=== PATIENT | female | born 1960 | race Caucasian/White ===

== ENCOUNTER 2018-08-17 09:50 | Inpatient (IN) | payer OTHER ==
[~2018-08-17] VITALS: Ht 149.9 cm; Wt 81.7 kg
[2018-08-17 10:00] VITALS: Ht 149.9 cm; Wt 81.7 kg
--- NOTE | 2018-08-17 10:09 | NUR ---
PT AWAKE AND ALERT. PT REPORTS HAVING HER BLOOD DRAWN 08/15/18 AND THE RESULTS SHOWED HER HGB WAS 5. PT DENIES ANY SYMPTOMS. PT DENIES HAVING ANY BLEEDING. NAD. RESP E/U. PT IN POSITION OF COMFORT AWAITING MSE.
--- NOTE | 2018-08-17 10:53 | NUR ---
MOVED TO BED 4. EKG IN PROG. PORTABLE XR COMPLETED
[2018-08-17 11:21] LABS: CALCIUM 8.3 mg/dL (8.5-10.1); CARBON DIOXIDE 30.3 mmol/L (21-32); CHLORIDE SERUM 101 mmol/L (98-107); CREATININE SERUM 0.7 mg/dL (0.6-1.0); GFR1 > 60 mL/min; GLUCOSE SERUM 181 mg/dL (74-106); POTASSIUM SERUM 3.4 mmol/L (3.5-5.1); SODIUM SERUM 137 mmol/L (136-145)
[2018-08-17 11:25] LABS: ALKALINE PHOSPHATASE 116 U/L (46-116); ALT/SGPT 26 U/L (14-59); AST/SGOT 66 U/L (15-37); BILIRUBIN TOTAL 5.2 mg/dL (0.20-1.00)
[2018-08-17 11:28] LABS: ALBUMIN 2.6 g/dL (3.4-5.0); TOTAL PROTEIN, SERUM 9.9 g/dL (6.4-8.2)
[2018-08-17 12:14] LABS: BASOPHIL % 0.5 % (0-2)
--- NOTE | 2018-08-17 12:27 | NUR ---
PER CAR ICER, PT'S CBC IS STILL PENDING, STS SHE WILL CALL BACK IN 2 MINS FOR CBC RESULTS.
[2018-08-17 12:51] LABS: RED CELL DISTRIBUTION WIDTH 19.9 % (11.5-14.5)
--- NOTE | 2018-08-17 13:10 | NUR ---
PER HERMELINDA FROM BLOOD BANK PTS SPECIMENT WILL BE SENT OUT; WILL CALL BACK "SOMETIME TODAY" WHEN READY.
--- NOTE | 2018-08-17 13:19 | NUR ---
REPORT GIVEN TO LUIS CAR
--- NOTE | 2018-08-17 13:34 | NUR ---
PT SEEN AMBULATING UP HALLWAY TO ROOM WITH STEADY GAIT. NO DISTRESS.
--- NOTE | 2018-08-17 13:44 | NUR ---
CONSENT FOR BLOOD TRANSFUSION SIGNED BY PT AND PLACED INSIDE CHART.
--- NOTE | 2018-08-17 13:51 | NUR ---
CHAPPERONED MD WITH RECTAL EXAM. PT TOLERATED WELL.
[2018-08-17 14:55] LABS: IRON 166 ug/dL (50-170); TOTAL IRON BINDING CAPACITY 207 ug/dL (250-450)
[2018-08-17 15:35] LABS: rbc morphology (normal/abnorm) ABNORMAL (NORMAL)
[2018-08-17 15:36] LABS: PLATELET COUNT 65 x10^3mcL (130-400)
--- NOTE | 2018-08-17 15:36 | NUR ---
[place], RESP E/U, NO DISTRESS.
--- NOTE | 2018-08-17 16:51 | NUR ---
RECEIVED REPORT FROM LUIS CAR IN ED. AWAITING PT ARRIVAL TO FLOOR.
[2018-08-17] MEDS ORDERED: LASIX20 MG PO (16:52)
--- NOTE | 2018-08-17 16:52 | NUR ---
REPORT GIVEN TO RN MONSE TO ASSUME CARE.
[2018-08-17 18:49] VITALS: BP 110/58
--- NOTE | 2018-08-17 19:20 | NUR ---
PT RECIEVED FROM THE DAY SHIFT RN, PT IS ALERT AND ORIENTED X4, PT IS CALM AND COOPERATIVE WITH CARE, DR FORMAN CALLED AND RECIEVED ORDERS FOR BLOOD TRANSFUSION, NO OTHER ORDERS GIVEN AT THIS TIME. SAFETY AND COMFORT MEASURES MAINTAINED, BED IN LOWEST POSITION, CALL LIGHT WITHIN REACH, WILL CONTINUE TO MONITOR AT THIS TIME.
--- NOTE | 2018-08-17 19:57 | NUR ---
REPORT GIVEN TO SUZIE CAR. ALL QUESTIONS AND CONCERNS ADDRESSED. ALL CARES ENDORSED.
[2018-08-17 21:06] VITALS: BP 101/53
--- NOTE | 2018-08-17 22:50 | NUR ---
PT IS AWAKE AND WATCHING TV AT THIS TIME. NO ACUTE DISTRESS NOTED, SAFETY AND COMFORT MEASURES MAINTAINED, BED IN LOWEST POSITION, CALL LIGHT WITHIN REACH, WILL CONTINUE TO MONITOR AT THIS TIME.
[2018-08-18] VITALS (11 sets, daily range): BP systolic 91–117; BP diastolic 41–65
--- NOTE | 2018-08-18 00:28 | NUR ---
PRE TRANSFUSION VITAL SIGNS ARE: TEMP 97.2, PULSE 89, BP 101/42 MAP 60, SPO2 95% ON 2L VIA NC, RESP RATE 18. NO REACTION NOTED.
--- NOTE | 2018-08-18 00:56 | NUR ---
PT 15 MINS VITAL SIGNS FOR BLOOD TRANSFUSION: TEMP 99.6, CA 89, BP 91/41 MAP 70, RESP RATE 18, SPO2 92% ON 2L VIA NC. PT DENIES CHILLS, FEVER, NAUSEA, VOMITING, NO DYSPNEA, NO HEAT AT INFUSION SITE, NO FACIAL FLUSHING, NO EDEMA AT THE SITE. SAFETY AND COMFORT MEASURES MAINTAINED, BED IN LOWEST POSITION, CALL LIGHT WITHIN REACH, WILL CONTINUE TO MONITOR AT THIS TIME.
--- NOTE | 2018-08-18 03:10 | NUR ---
PT IS RESTING IN BED WITH EYES CLOSED, NO ACUTE DISTRESS NOTED. BLOOD TRANSFUSION INFUSING WELL. NO ADVERSE REACTIONS NOTED, SAFETY AND COMFORT MEASURES MAINTAINED, BED IN LOWEST POSITION, CALL LIGHT WITHIN REACH.
--- NOTE | 2018-08-18 04:19 | NUR ---
PT IS RESTING IN BED WITH EYES CLOSED AT THIS TIME. NO ACUTE DISTRESS NOTED, NO FACIAL GRIMACING NOTED, NO ADVERSE REACTIONS NOTED, BLOOD TRANSFUSION STILL INFUSING AT THIS TIME. SAFETY AND COMFORT MEASURES MAINTAINED, BED IN LOWEST POSITION, CALL LIGHT WITHIN REACH, WILL CONTINUE TO MONITOR AT THIS TIME.
--- NOTE | 2018-08-18 05:22 | NUR ---
PT HAS RESTED IN INTERMITTENT INTERVALS THROUGHOUT THE SHIFT, PT HAS BEEN CALM AND COOPERATIVE WITH CARE, NO ACUTE DISTRESS NOTED, NO COMPLAINT OF PAIN AT THIS TIME. IV BLOOD TRANSFUSION 1 UNIT COMPLETED, NO ADVERSE REACTIONS NOTED, VITALS SIGNS WITHIN NORMAL LIMITS, PT DENIES FEVER, CHILLS, NAUSEA, VOMITING, HEADACHE, NO RASH NOTED, NO SOB NOTED, WILL ADMINISTER NEXT UNIT OF PRBC AFTER PATIENT VOIDS AFTER BEING GIVEN LASIX, SAFETY AND COMFORT MEASURES MAINTAINED, BED IN LOWEST POSITION, CALL LIGHT WITHIN REACH, WILL CONTINUE TO MONITOR AT THIS TIME.
[2018-08-18 05:44] LABS: BASOPHIL % 0.6 % (0-2)
[2018-08-18 05:54] LABS: CALCIUM 8.3 mg/dL (8.5-10.1); CARBON DIOXIDE 32.5 mmol/L (21-32); CHLORIDE SERUM 104 mmol/L (98-107); CREATININE SERUM 0.6 mg/dL (0.6-1.0); GFR1 > 60 mL/min; GLUCOSE SERUM 108 mg/dL (74-106); POTASSIUM SERUM 3.7 mmol/L (3.5-5.1); SODIUM SERUM 139 mmol/L (136-145)
--- NOTE | 2018-08-18 06:15 | NUR ---
PT PRE VITAL SIGNS FOLLOWS: BP 102/55, RESP 18, TEMP 97.3, SPO2 90. SAFETY AND COMFORT MEASURES MAINTAINED, BED IN LOWEST POSITION, CALL LIGHT WITHIN REACH, WILL CONTINUE TO MONITOR AT THIS TIME.
--- NOTE | 2018-08-18 06:45 | NUR ---
15 MIN VITALS BLOOD TRANSFUSION FOLLOWS: TEMP IS 98.1, SC 83, BP 103/55 RESP 18 SPO2 95%. NO ADVERSE REACTIONS NOTED. WILL CONTINUE TO MONITOR AT THIS TIME.
[2018-08-18 08:09] LABS: PLATELET COUNT 103 x10^3mcL (130-400); RED CELL DISTRIBUTION WIDTH 19.4 % (11.5-14.5)
[2018-08-18 12:01] LABS: IRON 190 ug/dL (50-170); TOTAL IRON BINDING CAPACITY 176 ug/dL (250-450)
[2018-08-18 13:18] LABS: BASOPHIL % 0.8 % (0-2)
[2018-08-18 13:22] LABS: PLATELET COUNT 75 x10^3mcL (130-400)
[2018-08-18 13:34] LABS: rbc morphology (normal/abnorm) ABNORMAL (NORMAL)
--- NOTE | 2018-08-18 13:44 | NUR ---
RECEIVED BEDSIDE REPORT FROM JOSEP CASAREZ; PT A/A/O X 4, CALM, COOPERATIVE. DENIES CHEST PAIN OR DISCOMFORT AT THIS TIME. NO ACUTE RESPIRATORY DISTRESS NOTED. SIDE RAILS UP X 2, BED IN LOW POSITION, CALL LIGHT WITHIN REACH. WILL CONTINUE TO MONITOR.
[2018-08-18 16:15] LABS: rbc morphology (normal/abnorm) ABNORMAL (NORMAL)
--- NOTE | 2018-08-18 17:20 | NUR ---
PT IN BED, WATCHING TV. PT A/A/O X 4, CALM, COOPERATIVE. DENIES CHEST PAIN OR DISCOMFORT AT THIS TIME. NO ACUTE RESPIRATORY DISTRESS NOTED. SIDE RAILS UP X 2, BED IN LOW POSITION, CALL LIGHT WITHIN REACH. WILL ENDORSE TO NOC SHIFT.
--- NOTE | 2018-08-18 19:10 | NUR ---
RECEIVED PT SITTING AT THE EDGE OF THE BED. AAOX4. LUNG SOUND CTA.NO SOB NOTED. DENIES ANY PAIN AT THIS TIME. IV SITE PATENT AND INTACT. BED IN LOWEST POSITION,CALL LIGHT WITHIN REACH.WILL CONTINUE TO MONITOR.
--- NOTE | 2018-08-19 05:08 | NUR ---
PT APPEARS TO BE SLEEPING. NO ACUTE REPSIRATORY DISTRESS NOTED. NO C/O PAIN AT THIS TIME. BED IN LOWEST POSITION,CALL LIGHT WITHIN REACH. WILL CONTINUE TO MONITOR.
[2018-08-19 05:21] VITALS: BP 111/69
--- NOTE | 2018-08-19 07:20 | NUR ---
CARE ENDORSED TO DAY NURSE
[2018-08-19 07:48] LABS: ALKALINE PHOSPHATASE 91 U/L (46-116); ALT/SGPT 23 U/L (14-59); AST/SGOT 58 U/L (15-37); BILIRUBIN TOTAL 4.27 mg/dL (0.20-1.00); CALCIUM 8.1 mg/dL (8.5-10.1); CARBON DIOXIDE 31.5 mmol/L (21-32); CHLORIDE SERUM 104 mmol/L (98-107); CREATININE SERUM 0.6 mg/dL (0.6-1.0); GFR1 > 60 mL/min; GLUCOSE SERUM 124 mg/dL (74-106); POTASSIUM SERUM 3.9 mmol/L (3.5-5.1); SODIUM SERUM 138 mmol/L (136-145)
[2018-08-19 07:49] LABS: ALBUMIN 2.3 g/dL (3.4-5.0); TOTAL PROTEIN, SERUM 8.3 g/dL (6.4-8.2)
--- NOTE | 2018-08-19 08:00 | NUR ---
SHIFT ASSESSMENT DONE. PATIENT A/A/OX4; GENERAL JAUDICE. DENIED PAIN. TELE#7; SR; HR = 93. DENIED CHEST PAIN. BREATHING SOUND DIMINISHED BISHOP BASES, BUT CLEAR. NO SOB. O2 SAT 95% ON 2L VIA N/C. ABD ROUND/SOFT. BOWEL SOUND ACTIVE. DENIED ABD PAIN. TOLERATED REGULAR DIET BREAKFAST. IVHL'D TO RFA. GENERAL WEAKNESS, BUT AMBULATORY. DENIED PAIN. CALL LIGHT IN REACH.
[2018-08-19 09:57] VITALS: BP 101/53
[2018-08-19] MEDS ORDERED: NATURE'S BLEND F1 MG PO (11:36)
[2018-08-19] MEDS ORDERED: FEROSUL325 MG PO (11:38)
[2018-08-19 12:27] VITALS: BP 101/53
[2018-08-19 12:29] LABS: BASOPHIL % 0.2 % (0-2)
[2018-08-19 12:33] LABS: PLATELET COUNT 58 x10^3mcL (130-400); RED CELL DISTRIBUTION WIDTH 20.7 % (11.5-14.5)
[2018-08-19 13:05] LABS: rbc morphology (normal/abnorm) ABNORMAL (NORMAL)
[2018-08-19 13:26] VITALS: BP 111/59
--- NOTE | 2018-08-19 14:45 | NUR ---
DR. DHILLON HAD SEEN PATIENT. ORDER OF DISCHARGE TO HOME TODAY. INSTRUCTION GIVEN. IV D/C'D. CONDITION STABLE. DENIED DIZZINESS AND PAIN. PATIENT WOULD TO SEE HER PCP ON MONDAY FOR HEMATOLOGY CONSULTATION.
== END 2018-08-19 14:47 | disposition home or self-care (01) | DRG 663 ==
LOC: ED 09:50 → DU 14:00
PROVIDERS: Emergency Medicine; Internal Medicine Pulmonary Disease; ADMIT Internal Medicine
PROC: 30233N1 Transfusion of Nonautologous Red Blood Cells into Peripheral Vein, Percutaneous Approach (ICD-10-PCS; principal; 2018-08-18)
DX: D64.9 Anemia, unspecified (principal); R16.1 Splenomegaly, not elsewhere classified
CPT/HCPCS: J1940; J7030; J7040; P9016; Q0092; Q0163

== ENCOUNTER 2018-10-11 10:46 | Inpatient (IN) | payer OTHER ==
[~2018-10-11] VITALS: Ht 149.9 cm; Wt 78.0 kg
[~2018-10-11 10:46] MED LIST: FEROSUL325 MG PO; LASIX20 MG PO; NATURE'S BLEND F1 MG PO
[2018-10-11 10:52] VITALS: Ht 149.9 cm; Wt 78.0 kg
--- NOTE | 2018-10-11 11:13 | NUR ---
PT BIB SON, STS SHE HAS HAD AN INCREASE IN "FEELING TIRED, BUT NOT WEAK" STS APPROX 2 DAYS AGO SHE HAD LABS DRAW WITH AT VISIT WITH PCP, STS HER PCP CALLED HER THIS AM AND TOLD HER TO COME TO THE ED FOR A HCG OF 5. PT DENIES SOB AND CP AT THIS TIME, STS SHE DOES FEEL SOB UPON WALKING AND LAYING DOWN FOR APPROX 1 YEAR, AND HAS ALSO HAD A "CRY COUGH" FOR APPROX 1 YEAR WELL, PER PT, "MY DR SAID I'M FINE, I JUST NEED TO GET THE BONE MARROW TEST". PT ALSO STS SHE IS CURRENTLY WAITING FOR "MY INSURANCE TO APPROVE A BONE MARROW TEST, TO FIND OUT WHY I'M ALWAYS ANEMIC". PT DRESSED APPROPRIATELY FOR WEATHER.
--- NOTE | 2018-10-11 11:13 | NUR ---
DR CROWE AT BEDSIDE FOR MSE.
--- NOTE | 2018-10-11 11:32 | NUR ---
LAB AT BEDSIDE.
[2018-10-11 11:59] LABS: CALCIUM 9.3 mg/dL (8.5-10.1); CARBON DIOXIDE 27.1 mmol/L (21-32); CHLORIDE SERUM 101 mmol/L (98-107); CREATININE SERUM 0.7 mg/dL (0.6-1.0); GFR1 > 60 mL/min; GLUCOSE SERUM 228 mg/dL (74-106); SODIUM SERUM 136 mmol/L (136-145)
[2018-10-11 12:05] LABS: BASOPHIL % 0.1 % (0-2)
[2018-10-11 12:07] LABS: ALKALINE PHOSPHATASE 133 U/L (46-116); ALT/SGPT 24 U/L (14-59); AST/SGOT 56 U/L (15-37); BILIRUBIN TOTAL 6.34 mg/dL (0.20-1.00)
[2018-10-11 12:11] LABS: ALBUMIN 2.3 g/dL (3.4-5.0); TOTAL PROTEIN, SERUM 9.8 g/dL (6.4-8.2)
--- NOTE | 2018-10-11 12:53 | NUR ---
SPOKE WITH LAB REGARDING PT'S CBC, STS "WE'RE WORKING ON IT".
[2018-10-11 12:58] LABS: RED CELL DISTRIBUTION WIDTH 18.3 % (11.5-14.5)
[2018-10-11 13:34] LABS: rbc morphology (normal/abnorm) ABNORMAL (NORMAL)
[2018-10-11] MEDS ORDERED: FERROUS SULFAT325 M2 PO (13:39)
[2018-10-11] MEDS ORDERED: NATURE'S BLEND F1 MG PO (13:39)
[2018-10-11] MEDS ORDERED: LASIX20 MG PO (13:39)
[2018-10-11 13:43] LABS: PLATELET COUNT 21 x10^3mcL (130-400)
--- NOTE | 2018-10-11 13:48 | NUR ---
PER LAB, PT IS HAS "POSITIVE ANTIBODIES SO WE HAVE WON'T HAVE THE BLOOD READY FOR ANOTHER 2 HRS", DR CROWE MADE AWARE, STS OK TO TRANSFER PT.
--- NOTE | 2018-10-11 13:49 | NUR ---
REPORT GIVEN TO JOSEP JACK TO ASSUME CARE OF PT.
[2018-10-11 13:58] LABS: IRON 169 ug/dL (50-170); TOTAL IRON BINDING CAPACITY 193 ug/dL (250-450)
--- NOTE | 2018-10-11 13:58 | NUR ---
RECEIVED PT VIA [facility] FROM E/D, ACCOMPANIED BY RN AND TRANSPORTER. PT A/A/O X 4, CALM, COOPERATIVE; PT W/ GLASSES BUT ONLY WEARS FOR READING, NOTED JAUNDICED SCLERA OU; DENIES KNOWLEDGE OF LIVER/GALL BLADDER PROBLEMS. BLE WEAKNESS BUT AMBULATORY, ABLE TO WALK FROM ERNEY TO BED USING WALKER, W/ SLOW, STEADY GAIT, BUT NEEDED HELP GETTING BOTH LEGS ONTO BED. DENIES CHEST PAIN OR DISCOMFORT AT THIS TIME. LUNGS CTAB, CHEST RISING EVENLY, 2LNC, 92%, C/O DRY COUGH X 1 YEAR (EXACERBATED BY PHYSICAL ACTIVITY). NOTED SCATTERED PETICHIAE/BRUISING TO BUE; SKIN OTHERWISE INTACT. IV SITE LAC 20G, CDI. ORIENTED PT TO ROOM, BED CONTROLS, CALL LIGHT SYSTEM. SIDE RAILS UP X 2, BED IN LOW POSITION. WILL ENDORSE TO JOSEP GIMENEZ.
[2018-10-11 14:43] VITALS: BP 107/56
--- NOTE | 2018-10-11 14:50 | NUR ---
RECEIVED PATIENT FROM KERON RN, PATIENT AWAKE/ALERT AND ORIENTED X4, DENIES PAIN. PATIENT EATING AT THIS TIME. POC EXPLAINED TO PATIENT, INFORM PATIENT STILL WAITING BLOOD TO BE READY. CALL LIGHT WITHIN REACH.
--- NOTE | 2018-10-11 15:29 | NUR ---
ASSISTING PATIENT TO BATHROOM AND BACK TO BED, MILD FATIGUE AND SOB NOTED. GAVE NEPHRO-JUVENAL PO AND REGULAR INSULIN 3 UNITS SQ FOR BS 190. PATIENT SIGN BLOOD CONSENT NO FURTHER QUESTION. CALL LIGHT WITHIN REACH.
--- NOTE | 2018-10-11 15:35 | NUR ---
CALLED AND SPOKE TO AND I VERIFIED WITH HIM THAT HE WANT A TOTAL OF 3 UNITS OF PRBC TO TRANSFUSE TO THIS PT. 2 MORE UNITS ORDERED PER 'S ORDER. CALLED TO BLOOD BANK AND SPOKE TO INA(STAFF FROM BLD BANK) AND MADE HER AWARE OF ORDER.
--- NOTE | 2018-10-11 16:59 | NUR ---
SPOKE TO PHARMACIST MARIA G PATIENT HAS NOT GET BLOOD TRANSFUSIN YET, WAITING FOR BLOOD TO BE AVAILABLE. NEED TO CHANGE DOSAGE TIME PER SPECIAL INSTRUCTION TO GIVE AFTER LAST BAG OF BLOOD TRANSFUSION.
[2018-10-11 17:26] VITALS: BP 98/55
--- NOTE | 2018-10-11 18:03 | NUR ---
PATIENT SAT UP IN BED NO COMPLAIN, VISITOR AT BEDSIDE. NO NEEDS ATTENDED AT THIS TIME. STILL WAITING FOR BLOOD BANK TO CALL. CONT TO MONITOR.
--- NOTE | 2018-10-11 19:46 | NUR ---
RECIEVED PT FROM DAY SHIFT RN. PT AAOX4 DENIES HEADACHE OR DIZZINESS. MED SURG PT DENIES CHEST PAIN. BREATHING EVEN AND UNLABORED WITH NO SOB NOTED, NC 2L/MIN. ABD SOFT AND ROUND, ACTIVE BOWEL SOUNDS, DENIES ABD PAIN N/V. BLE EDEMA NOTED. GENERALIZED WEAKNESS NOTED. IV LAC PATENT, SL. CALL BUTTON WITHIN REACH. SAFETY PRECAUTIONS IN PLACE.
[2018-10-11 20:57] VITALS: BP 95/43
--- NOTE | 2018-10-11 21:56 | NUR ---
CALCIUM GLUCONATE SCHEDULED FOR 2300 TONIGHT NOT ADMININSTERED BLOOD TRANSFUSION NOT YET AVAILABLE.
--- NOTE | 2018-10-11 23:36 | NUR ---
LANIE FROM LAB CALLED AND WANTED TO CALL DR FORMAN REGARDING BLOOD, DR FORMAN CALLED BACK AND TRANSFERRED CALL TO LANIE ([phone]). LANIE CALLED BACK AFTER PHONE CONVERSATION WITH DR FORMAN AND REQUESTED TO BRING BLOOD TRANSFUSION CONSENT SO HE COULD WRITE WHAT DR FORMAN ORDERED. RELAY MESSAGE TO ASSIGNED NURSE AIDAN.
[2018-10-12] VITALS (7 sets, daily range): BP systolic 37–110; BP diastolic 50–59
--- NOTE | 2018-10-12 00:11 | NUR ---
PT RESTING, BREATHING EVEN AND UNLABORED ON NC WITH NO SOB NOTED. NO SIGNS OF ACUTE DISTRESS NOTED. CALL BUTTON WITHIN REACH. SAFETY PRECAUTIONS IN PLACE. WILL CONTINUE TO MONITOR.
--- NOTE | 2018-10-12 00:24 | NUR ---
CALLED DR FORMAN AND ASKED IF HE WANTS TO PRE MEDICATE PATEINT PRIOR TO BLOOD TRANSFUSION, PER DR FORMAN NO NEED, NO NEW ORDER GIVEN.
--- NOTE | 2018-10-12 03:52 | NUR ---
0300 PATIENT DENIES ANY DISTRESS, VS TEMP 99.4, HR 95, BP 97/53, 18, 95% NC 2L/MIN FIRST UNIT OF BLOOD STARTED AT THIS TIME. PT MADE AWARE OF ADVERSE REACTION AND VERBALIZE UNDERSTANDING. 0315 VS TEMP 98.8, HR 89, BP 91/50, 18, 94% NC 2L/MIN NO SIGNS OF ADVERSE REACTION, NO SIGNS OF DISTRESS NOTED. CALL BUTTON WITHIN REACH. WILL CONTINUE TO MONITOR.
--- NOTE | 2018-10-12 05:43 | NUR ---
FIRST UNIT OF BLOOD TRANSFUSION COMPLETED AT THIS TIME. NO ADVERSE REACTION NOTED. TEMP 99.2, HR 87, BP 98/52, 18, 94% NC 2L/MIN. NO SIGNS OF DISTRESS. CALL BUTTON WITHIN REACH. WILL CONTINUE TO MONITOR.
--- NOTE | 2018-10-12 06:30 | NUR ---
SECOND BLOOD TRANSFUSION STARTED AT THIS TIME, VS STABLE. NO SIGNS OF ADVERSE REACTION NOTED. CALL BUTTON WITHIN REACH. WILL CONTINUE TO MONITOR.
--- NOTE | 2018-10-12 07:35 | NUR ---
PT SLEPT ON AND OFF THROUGH OUT THE NIGHT WITH NO SIGNS OF DISTRESS NOTED. IV PATENT BLOOD TRANSFUSION CONTINUED TO BE INFUSUED WITH NO ADVERSE REACTION NOTED. CALL BUTTON WITHIN REACH. SAFETY PRECAUTIONS IN PLACE. ENDORSED CARE TO DAY SHIFT RN, ALL QUESTIONS ADDRESSED.
--- NOTE | 2018-10-12 07:45 | NUR ---
RECEIVED CALL FROM RADIOLOGY AND ASKED FOR PATIEN TTO BE NPO AND PATIETN IS TO HAVE PTT AND PT AND CHEST XRAY INDICATED.
--- NOTE | 2018-10-12 08:00 | NUR ---
RECEIVED WITH BLOOD INFUSION RUNNING. PATIENT HAD BEEN NOTED TO HAVE H AND H OF JUST4.7/15. SHE RECEIVED BLOOD LAST NIGHT AND HAD BEEN WITH IT RUNNING AT 125CC PER HOUR. NO ADVERSE REQACTION NOTED AND PATIENT AHS BEEN OOB AND TOLERATED WELL. SHE HAS A WALKER AT [facility] AND HAS BEEN USING AT HOME WELL. SHE HAS FLUID RETENTION TO THE LOWER EXTREMTIIES AND HAS BEEN WITH MORE TO THE LEFT THAN THE RIGHT. SHE STATES SHE TAKES A WATER PILL AT HOME. PATIENT ZABRINA TINOCO AND ZABRINA SSOB AT THIS TIME. SHE HAS A HISTORY OF C SECTION. AND YUE DANIELS KNOWN ALLERGIES. PATIENT HAS HX OF ANEMIA AND PREVIOUS BLOOD TRANSFUSION. PATIENT AHS ECCHYMOSIS TO THE UPPER EXTREMITES BUT NO INJURY PER THE PATIENT. PATIETN IS IN NO ACUTE DISTRESS AT THIS TIME. ABDOMEN IS DISTENDED BUT SOFT.
--- NOTE | 2018-10-12 08:00 | NUR ---
PATIENT MADE NPO AT THIS TIME FOR POSSIBLE NEPHROSTOMY TUBE BILATERAL PLACEMENT TODAY. PATIENT IS WITH DIMINISHED BREATH SOUNDS AND BOWEL SOUNDS ACTIVE. SANDERS TO GRAVITY AND URINE IS CLOUDY AND MILKY IN APPEARANCE. IV INTACT AND PATIENT IS WITH HISTORY OF DEMENTIA AND HAS BEEN ORIENTED ONLY TO SELF AT THIS TIME. PULSES ARE MODERATE AND THE HANDS APPEAR CONTRACTED. STARTED WITH CHECKLIST AND WILL CALL THE FAMILY IF INDEED THE PROCEDURE IS GOING TO HAPPEN. THE RADIOLOGIST WANTED TO SPEAK WITH THE CHEMICAL PROCESS ENGINEER FIRST. PATIENT IS UNABLE TO SIGN HER CONSENTS. PATIENT HAS BEEN ON BEDREST AND FORM A FPC PER REPORT AND WAS WITH GENERAL WEAKNESS AND HAS BEEN PLACED ON AN AIR MATTRESS. SHE HAS A SACRAL WOUND WIT OPTIFORM IN PLACE AND Z GUARD APPLED TO THE RIGHT BUTTOCK DUE TO REDNESS. PATIENT HAS BEEN ON ROCEPHIN AND HAD RECEIVED ZITRHOMAX PRIOR. HX OF HTN, DM AND THE BLOOD SUGAR THIS AM AT 145. NOTED THE BUN WAS VERY ELEVATED PER RESIDENTIAL THERAPIST AT 150 AND THE CREATININE AT 8.1. PATIENT HAS BEEN ON SODIUM BICARB ORDERED AT 100CC PER HOUR. PATIENT IS PALE BUT DOES NOT INDICATE SHE HAS ANY PAIN AND DOES NOT APPEAR IN ACUTE RESPIRATORY DISTRESS. PATIENT CHEST XRAY SHOWS POSSIBLE ATELECTASIS OR PNEUMONIA TO THE LEFT LUNG. WILL CONTINUE TO MONITOR AND WILL KEEP NPO FOR FUTHER ORDERS AT THIS TIME.
--- NOTE | 2018-10-12 10:27 | NUR ---
SECOND UNIT COMPLETED THE LAB WAN FOR BLOOD AND PENDING RESULTS TO SEE IF THE THIRD UNIT IS INDICATED. PATIENT HAD NO ADVERSE REACTION.
[2018-10-12 10:33] LABS: ALKALINE PHOSPHATASE 126 U/L (46-116); ALT/SGPT 22 U/L (14-59); AST/SGOT 57 U/L (15-37); BILIRUBIN TOTAL 5.67 mg/dL (0.20-1.00); CALCIUM 8.4 mg/dL (8.5-10.1); CARBON DIOXIDE 29.5 mmol/L (21-32); CHLORIDE SERUM 102 mmol/L (98-107); CREATININE SERUM 0.7 mg/dL (0.6-1.0); GFR1 > 60 mL/min; GLUCOSE SERUM 205 mg/dL (74-106); MAGNESIUM 2.1 mg/dL (1.8-2.4); PHOSPHOROUS 4.1 mg/dL (2.5-4.9); POTASSIUM SERUM 4.4 mmol/L (3.5-5.1); SODIUM SERUM 136 mmol/L (136-145)
[2018-10-12 10:38] LABS: ALBUMIN 2.1 g/dL (3.4-5.0); TOTAL PROTEIN, SERUM 8.9 g/dL (6.4-8.2)
--- NOTE | 2018-10-12 11:55 | NUR ---
BLOOD SUGAR AT THIS TIME AT 179 AND COVERAGE IS INDICATED. PATIENT CONTINUE DON LAST UNIT OF BLOOD ORDERED.
--- NOTE | 2018-10-12 12:46 | NUR ---
GAVE THREE UNITS OF INSULIN FOR COVERAGE AND PATIENT CONTINUE DON BLOOD INFUSION ORDERED. NO SWELLING AND DENIES ANY ADVERSE REACTION AT THIS TIME.
--- NOTE | 2018-10-12 19:05 | NUR ---
REPORT RECEIVED FROM DAY SHIFT RN. PATIENT WAS SEEN AND IS RESTING COMFORTABLY IN BED WITH FAMILY AT BEDSIDE. NO DISTRESS NOTED. BREATHING EVEN ON 2L NC. NO SOB NOTED. DRY COUGH NOTED. DENIES CHEST PAIN/PRESSURE. IV TO THE RFA, S.L. PATENT AND INTACT. NO REDNESS OR SWELLING NOTED. NO C/O PAIN. PATIENT HAD 3U OF PRBCS TRANSFUSED. AWAITING ON H/H RESULTS. PATIENT VERBALIZED THAT SHE FEELS MORE COMFROTBALE STAYING ANOTHER NIGHT. COMFORT AND SAFETY MEASURES MAINTAINED. BED IS LOCKED AND IN THE LOWEST POSITION. SIDE RAILS UP X2. CALL LIGHT IS WITHIN REACH. WILL CONTINUE TO MONITOR.
--- NOTE | 2018-10-13 02:09 | NUR ---
PATIENT RESTING COMFORTABLY IN BED WITH EYES CLOSED. DAUGHTER AT BEDSIDE. NO SOB OR RESP DISTRESS NOTED. BREATHING EVEN ON ROOM AIR. NO S/S OF PAIN NOTED. IV TO THE LFA INFUSING WELL. COMFORT AND SAFETY MEASURES MAINTAINED. CALL LIGHT IS WITHIN REACH. WILL CONTINUE TO MONITOR.
--- NOTE | 2018-10-13 02:12 | NUR ---
PATIENT IS RESTING IN BED COMFORTABLY WITH EYES CLOSED. NO DISTRESS NOTED. BREATHING EVEN ON ROOM AIR. IV TO THE RFA, S.L. NO S/S OF PAIN NOTED. COMFORT AND SAFETY MEASURES MAINTAINED. CALL LIGHT IS WITHIN REACH. WILL CONTINUE TO MONITOR.
[2018-10-13 05:53] VITALS: BP 99/47
--- NOTE | 2018-10-13 06:23 | NUR ---
PATIENT SLEPT THROUHGOUT THE NIGHT. NO ACUTE CHANGES NOTED. NO DISTRESS NOTED. BREATHING EVEN ON 2L NC. NO C/O PAIN. IV TO THE RFA, SL. PATENT AND INTACT. NO REDNESS OR SWELLING NOTED. DENIES CHEST PAIN. STILL AWAITING LABS. CALL LIGHT IS WITHIN REACH. COMFORT AND SAFETY MEASURES MAINTAINED. WILL ENDORSE CARE TO DAY SHIFT RN.
--- NOTE | 2018-10-13 08:00 | NUR ---
RECEIVED PATIENT WHO HAD A GOOD NIGHT AND SLEPT WELL. DID NOT EAT MUCH THIS AM BUT HER OVERALL APPEARANCE IS IMPROVED SINCE LAST NIGHT. THE JAUNDICE THAT IS STILL PRESENT IS LESS TO THE WHITES OF THE EYE AND SKIN. SHE HAS MORE ENERGY TODAY AND DENIES ANY FELLING OF LIGHT HEADEDNESS. SHE HAS BEEN WAITING FOR THE LAB RETURN BUT NOT BACK YET. THE CHARGE INDICATED THE BLOOD NEEDED TO BE SENT OUT FOR TESTING. WILL CLARIFY MORE WITH THE LAB INDICATED. PATIENT THOUGH HAS BEEN ALL RIGHT TO STAY FOR NOW. ASSISTED OOB TO THE RESTROOM WITH STAFF OR HER WALKER AND STAFF. NOTED BLOOD SUGAR THIS AM AT 104. AHD NAD DENIED HAVING DIABETES. PATIENT HAS EDEMA TO THE LOWER EXTREMTIES BUT THE SWELLING REDUCED SINCE YESTERDAY AND THE LUNGS ARE MILDLY DININISHED BUT NOT HEARING CRACKLES LIKE LAST NIGHT AND NO DRY COUGH AT THIS TIME. VITALS AT THIS TIME AT 97.8, 89, 18, 99/97, 72, 96% ON 02 AT 2 LITERS VIA NASAL CANNULA.
--- NOTE | 2018-10-13 09:32 | NUR ---
WHEN NOTED THE LAB VALUE DID NOT COME BACK CALLED THE LAB AFTER WAS TOLD THERE WAS AN ISSUE WITH GETTING RESULTS BY THE NIGHT CHARGE NURSE. APPARENTLY THE SPECIMIN COULD NOT BE READ HERE AT [place] DUE TO A FACTOR IN THE BLOOD AND WAS SENT TO AN OUTSIDE LAB FOR READING AND PROCESSING. PER THE LAB STAFF THE SPECIMIN WENT OUT LAST NIGHT AND SHOULD BE BACK TODAY. ADVISED THE PATIETN WHO SEEM TO BE ALRIGHT WITH THIS. SHE IS ASYMPTOMATIC AT THIS TIME. WILL CONTINUE MONTIOR. PATIENT CONTINUED WITH SOME MILD OVERAL WEAKNESS BUT MUCH IMPROVED SINCE YESTERDAY.
[2018-10-13 09:33] VITALS: BP 103/52
--- NOTE | 2018-10-13 12:01 | NUR ---
BLOOD SUGAR AT 158 AND GAV E3 UNITS OF REGULAR. PATIETN IN IN NO ACUTE DISTRESS AT THIS TIME.
--- NOTE | 2018-10-13 14:40 | NUR ---
LAB CALLED TO F/U ON PENDING LABS FROM YESTERDAY. PER TECH RESULTS HAVE NOT BEEN RECEIVED FROM [facility] YET, LABS HAD TO BE SENT OUT. PER TECH THEY WILL CONTACT [facility] TO F/U AND CALL UP TO STATION TO LET ATTENDING NURSE KNOW WHEN TO EXPECT RESULTS.
--- NOTE | 2018-10-13 16:07 | NUR ---
BLOOD SUGAR AT THIS TIME AT 258 AND WILL GIVE COVERAGE INDICATED. FAMILY AT BEDSIDE AND PATIENT TO BE DRAWN AGAIN FOR CBC. PATIENT WAS TO HAVE HER LAB SENT TO AN OUTSIDE SOURCE BUT THE SPECIMEN WAS TAINTED PER LAB AND NEW DRAW INDICATED. CHARGE THE PRIMARY NURSE THE FOOD AND BEVERAGE DIRECTOR NURES AND CHARGE ALL CALLED ABOUT THIS LAB AND THE NEED FOR RESULTS THROUGHOUT YESTERDAY AND LAST NIGHT AND INTO TODAY. THE LAB IS HERE FOR REDRAW AT THIS TIME. WILL BE AWAITING RESULTS AT THIS TIME. PATENT HAS BEEN VISITING WITH FAMILY AND DENIES ANY ACUTE DISTRESS AT THIS TIME.
--- NOTE | 2018-10-13 16:11 | NUR ---
BLOOD SUGAR AT THIS TIME AT 235 AND WILL GIVE COVERAGE INDICATED. FAMILY AT BEDSIDE AND PATIENT TO BE DRAWN AGAIN FOR CBC. PATIENT WAS TO HAVE HER LAB SENT TO AN OUTSIDE SOURCE BUT THE SPECIMEN WAS TAINTED PER LAB AND NEW DRAW INDICATED. CHARGE THE PRIMARY NURSE THE DISEASE MANAGEMENT NURSE NURES AND CHARGE ALL CALLED ABOUT THIS LAB AND THE NEED FOR RESULTS THROUGHOUT YESTERDAY AND LAST NIGHT AND INTO TODAY. THE LAB IS HERE FOR REDRAW AT THIS TIME. WILL BE AWAITING RESULTS AT THIS TIME. PATENT HAS BEEN VISITING WITH FAMILY AND DENIES ANY ACUTE DISTRESS AT THIS TIME.
[2018-10-13 16:56] LABS: BASOPHIL % 0.6 % (0-2)
[2018-10-13 17:22] LABS: PLATELET COUNT 109 x10^3mcL (130-400); RED CELL DISTRIBUTION WIDTH 31.3 % (11.5-14.5)
[2018-10-13 17:31] VITALS: BP 100/50
[2018-10-13 17:57] LABS: rbc morphology (normal/abnorm) ABNORMAL (NORMAL)
--- NOTE | 2018-10-13 19:00 | NUR ---
RECEIVED PT IN BED COMFORTABLY RESTING WITH FAMILY AT BEDSIDE. BREATHING EVEN AND UNLABORED.DENIES ANY PAIN AND DISCOMFORT AT THIS TIME.IV SITE PATENT AND INTACT. BED IN LOWEST POSITION,CALL LIGHT WITHIN REACH. WILL CONTINUE TO MONITOR. WILL CONTINUE TO MONITOR.
--- NOTE | 2018-10-13 19:04 | NUR ---
PATIENT NEENA LASIX AND IRON ORDERED, NOTED THE H AHD H BACK AND THE HEMAGLOIN AT 7.7.
[2018-10-13 21:22] VITALS: BP 105/58
--- NOTE | 2018-10-14 05:01 | NUR ---
PT REMAINED ASLEEP.NO DISTRESS NOTED.NO S/S OF PAIN.BED IN LOWEST POSITION,CALL LIGHT WITHIN REACH. WILL CONTINUE TO MONITOR.
[2018-10-14 05:51] VITALS: BP 98/53
[2018-10-14 06:37] LABS: CALCIUM 8.7 mg/dL (8.5-10.1); CHLORIDE SERUM 103 mmol/L (98-107); CREATININE SERUM 0.6 mg/dL (0.6-1.0); GFR1 > 60 mL/min; GLUCOSE SERUM 132 mg/dL (74-106); MAGNESIUM 2.1 mg/dL (1.8-2.4); POTASSIUM SERUM 4.7 mmol/L (3.5-5.1); SODIUM SERUM 136 mmol/L (136-145)
--- NOTE | 2018-10-14 07:19 | NUR ---
CARE ENDORSED TO DAY NURSE ANGELA.
--- NOTE | 2018-10-14 08:00 | NUR ---
RECEIVED PATIENT ALERT AND ORIENTED TIMES FOUR. PATIENTAAHS BEEN OOB AND WITH WALKER AND STATES SHE IS LESS WEAK TODAY AND IS ANXIOUS TO GO HOME. NOTED THE LAB FOR H AND HF RETURN LAST NIGHT AT 7.7/. SHE HAS BEEN ON IRON, FOLIC ACID AND HAS BEEN WITH JAUNDICE BUT IS MUCH LESS THAN THE FIREST DAY STAFF HAD HER WITH THE YELLOWING OF THE EYES WELL. SHE HAS A DISTENDED BUT SOFT ABDOMEN AND HAS BEEN ABLE TO MOVE BOWELS WITHOUT PROBLEMS SHE HAS BEEN URINATING AND SHE HAS NOTED NEW ONSET OF DIABETES. THE LAST BLOOD SUGAR WAS AT 121 AND NO CO COVERAGE INDICATED. PATIENT HAS VITALS AT THIS TIME AT 98.0, 85, 18, 98/53, 95% ON ROOM AIR. PATIENT IS TO BE OFF 02 AND ASSIST WITH AMBULATION AND TRANSVERS TO AND FROM THE RESTOOM. SHE HAS NOTED LAB OF BUN AT 25.0, CREATININES AT 6.6, AND ALK PHOS AT 126. PATIENT HAS BEEN WITH LOW WBC AT 4.0 AND THE EDEMA TO THE LOWER EXTREMITES IS IMPROVED BUT STILL WTIH AT LEAST 2 PLUS BILATERALLY. CONTINUED ON LASIX ORDERED. NOTED THE PATIEN THAS SOME ECHEMOSIS TO THE UPPER EXTREMTIES SHE DENIES PAIN AT THIS TIME. WILL CONTINUE TO [facility].
[2018-10-14 09:02] VITALS: BP 100/46
--- NOTE | 2018-10-14 12:54 | NUR ---
BLOODS SUGAR AT 207 AND GAVE 3 UIT SOF REGULAR ORDERED.
--- NOTE | 2018-10-14 13:55 | NUR ---
PATIENT IS RESTING QUIETLY IN BED. SHE DENIES PAIN AT THIS TNME. SHE DOES NOT APPEAR IN ANY RESPIRATORY DISTRESS,
[2018-10-14 17:11] LABS: BASOPHIL % 0.6 % (0-2)
[2018-10-14 17:17] LABS: PLATELET COUNT 93 x10^3mcL (130-400); RED CELL DISTRIBUTION WIDTH 27.3 % (11.5-14.5)
[2018-10-14 17:19] VITALS: BP 106/52
[2018-10-14 17:37] LABS: rbc morphology (normal/abnorm) ABNORMAL (NORMAL)
--- NOTE | 2018-10-14 18:01 | NUR ---
PATIENT H AHD H DROPPED TO 6.6 AND THE RESIDENT MADE AWARE AND FOR 2 UNITS OF BLOOD AND TO HAVE OCCULT BLOOD AND OFFERED THE PATIENT THE SPECIMEN CONTAINER AND INSTRUCTIONS.
--- NOTE | 2018-10-14 19:15 | NUR ---
RECEIVED REPORT FROM ANGELA CAR. WILL CONTINUE CARE AND TREATMENT PLAN.
[2018-10-14 20:57] VITALS: BP 93/58
[2018-10-15] VITALS (8 sets, daily range): BP systolic 93–114; BP diastolic 32–54
--- NOTE | 2018-10-15 00:30 | NUR ---
CHARGE NURSE MARY SPOKE WITH BLOOD BANK. NO BLOOD PRODUCTS FOR PATIENT YET, STILL AWAITING ARRIVAL OF BLOOD.
--- NOTE | 2018-10-15 01:31 | NUR ---
PT IS RESTING IN BED WITH EYES CLOSED AT THIS TIME. NO ACUTE DISTRESS NOTED. NO S/S OF PAIN NOTED. SAFETY AND COMFORT MEASURES MAINTAINED, BED IN LOWEST POSITION, CALL LIGHT WITHIN REACH.
--- NOTE | 2018-10-15 02:16 | NUR ---
SPOKE WITH BLOOD BANK, BLOOD PRODUCTS STILL NOT HERE FOR PATIENT.
--- NOTE | 2018-10-15 05:38 | NUR ---
PT SLEPT IN SHORT INTERVALS THROUGHOUT THE SHIFT. PT HAS BEEN CALM AND COOPERATIVE WITH CARE, NO ACUTE DISTRESS NOTED. PT HAS NO COMPLAINT OF PAIN AT THIS TIME. IV IS HEPLOCKED AT THIS TIME. PT HAS BEEN ALERT AND ORIENTED X4, BLOOD BANK CALLED, BLOOD PRODUCTS STILL NOT AVAILABLE FOR PT YET. SAFETY AND COMFORT MEASURES MAINTAINED, BED IN LOWEST POSITION, CALL LIGHT WITHIN REACH. WILL ENDORSE CONTINUITY OF CARE TO THE ONCOMING RN.
--- NOTE | 2018-10-15 07:50 | NUR ---
A+OX4, MEDSURG, NO RESPIRATORY DISTRESS NOTED, DENIES PAIN, PULSES MODERATE AND EQUAL BISHOP, +2 EDEMA BLE, LUNG SOUNDS DIMINISHED, BOWEL SOUNDS ACTIVE, VOIDING FREELY, GENERALIZED WEAKNESS, JAUNDICE, IV IN RFA SALINE LOCKED, SITE WNL.
--- NOTE | 2018-10-15 07:58 | NUR ---
CALLED BLOOD BANK TO FOLLOW UP ON 2 UNITS PRBCS PREVIOUSLY ORDERED. BLOOD BANK STATES THERE IS NO BLOOD AVAILBLE AT THIS TIME AND THEY WILL CALL WHEN BLOOD ARRIVES.
[2018-10-15 08:24] LABS: BILIRUBIN DIRECT 2.45 mg/dL (0.0-0.2); BILIRUBIN TOTAL 4.95 mg/dL (0.20-1.00)
[2018-10-15 08:25] LABS: TOTAL PROTEIN, SERUM 8.6 g/dL (6.4-8.2)
[2018-10-15 08:37] LABS: CALCIUM 8.8 mg/dL (8.5-10.1); CARBON DIOXIDE 29.6 mmol/L (21-32); CHLORIDE SERUM 103 mmol/L (98-107); CREATININE SERUM 0.6 mg/dL (0.6-1.0); GFR1 > 60 mL/min; GLUCOSE SERUM 130 mg/dL (74-106); POTASSIUM SERUM 4.5 mmol/L (3.5-5.1); SODIUM SERUM 137 mmol/L (136-145)
[2018-10-15 09:19] LABS: RED BLOOD CELLS 0.73 M/mm3 (4.10-5.10)
--- NOTE | 2018-10-15 09:34 | NUR ---
PT RESTING IN BED, NO RESPIRATORY DSITRESS NOTED, DENIES PAIN, CALL LIGHT WITHIN REACH.
--- NOTE | 2018-10-15 11:29 | NUR ---
PER BLOOD BANK, ANAM TEST POSITIVE. CHARGE NURSE LORIE ROWLAND.
--- NOTE | 2018-10-15 11:56 | NUR ---
PER BLOOD BANK, BLOOD CANNOT BE OBTAINED UNTIL DR URENA SIGNS CONSENT FORM. CHARGE NURSE AWARE.
--- NOTE | 2018-10-15 12:17 | NUR ---
PT RESTING IN BED, FAMILY AT BEDSIDE, NO RESPIRATORY DISTRESS NOTED, DENIES PAIN, CALL LIGHT WITHIN REACH.
--- NOTE | 2018-10-15 13:45 | NUR ---
DR URENA NOTIFIED THAT HIS SIGNATURE IS NEEDED ON BLOOD CONSENT IN ORDER TO OBTAIN BLOOD FROM LAB.
[2018-10-15 14:02] LABS: PLATELET COUNT 33 x10^3mcL (130-400); RED CELL DISTRIBUTION WIDTH 24.2 % (11.5-14.5)
[2018-10-15 14:37] LABS: BAND NEUTROPHIL 4 % (0-10); SEGMENTED NEUTROPHILS 84 % (37-75)
[2018-10-15 14:38] LABS: ATYPICAL LYMPH 2 %; rbc morphology (normal/abnorm) ABNORMAL (NORMAL)
--- NOTE | 2018-10-15 15:37 | NUR ---
BLOOD TRANSFUSION INITITATED. WITNESSED BY NASIR RN. PRE TRANSFUSION VS STABLE. PER DR URENA, NO TYLENOL OR BENADRYL TO BE GIVEN. WITNESSED DR URENA SIGN BLOOD TRANSFUSION CONSENT. PT INSTRUCTED TO NOTIFY ME IMMEDIATELY IF ITCHINESS, CHILLS, PAIN, SOB, ETC OCCURS. WILL REMAIN IN ROOM WITH PT FOR 15 MINS.
--- NOTE | 2018-10-15 15:52 | NUR ---
AFTER 15 MINS, NO ADVERSE REACTIONS, VS STABLE, NO RESPRIATORY DSITRESS NOTED, CALL LIGHT WITHIN REACH.
--- NOTE | 2018-10-15 17:32 | NUR ---
PT RESTING IN BED, TALKING WITH FAMILY AT BEDSIDE, NO RESPRIATORY DSITRESS NOTED, BLOOD TRANSFUSING WITHOUT INCIDENT AT THIS TIME, CALL LIGHT WITHIN REACH.
--- NOTE | 2018-10-15 18:37 | NUR ---
BLOOD TRANSFUSION COMPLETE, NO ADVERSE REACTIONS AT THIS TIME, VS STABLE, NO RESPRIATORY DSITRESS NOTED, CALL LIGHT WITHIN.
--- NOTE | 2018-10-15 18:40 | NUR ---
IV IN RFA SWOLLEN AND PURPLE, IV REMOVED WITH CATHETER INTACT, GAUZE AND TAPE PLACED ON SITE, RFA ELEVATED ON PILLOW. ATTEMPTED IV TWICE AND FAILED.
--- NOTE | 2018-10-15 18:50 | NUR ---
NEW IV PLACED IN LAC.
--- NOTE | 2018-10-15 19:10 | NUR ---
IV IN LAC SWOLLEN AND BRUISED, NO LONGER PATENT. NEW IV PLACED IN RFA, FLUSHING WELL, BLOOD RETURN PRESENT.
--- NOTE | 2018-10-15 19:25 | NUR ---
RECEIVED PT LAYING IN BED, NO ACUTE DISTRESS OBSERVED. DENIES PAIN OR DISCOMFORT. IV TO RFA IN PLACE, DRY, PATENT, INTACT, INFUSING BLOOD TRANSFUSION ORDERED, NO PAIN, REDNESS, OR SWELLING NOTED. PT EDUCATED TO USE CALL LIGHT IF EXPERIENCING ANY SYMPTOMS OF TRANSFUSION REACTION, PT AGREED AND VERBALIZED UNDERSTANDING. PT ALSO ADVISED TO USE CALL LIGHT IF IV SITE BECOMES PAINFUL OR SWOLLEN, PT AGREED AND VERBALIZED UNDERSTANDING. AA/OX4, ABLE TO MAKE NEEDS KNOWN, SPEECH CLEAR AND APPROPRIATE. MED-SURG, NO TELE, NO CP. PULSES PRESENT AND EQUAL, +2 EDEMA TO BLE. BREATHING ON 2L NC, EVEN AND UNLABORED, DENIES SOB OR DYSPNEA, LUNGS CTA, O2 SAT 94% ABD ROUND AND SOFT WITH ACTIVE BOWEL SOUNDS, DENIES N/V/D. FREELY VOIDS URINE. GENERALIZED WEAKNESS, AMBULATORY WITH WALKER, WALKER AT BEDSIDE AND WITHIN REACH, ABLE TO TURN AND REPOSITION SELF IN BED. GENERALIZED AND SCLERAL JAUNDICE NOTED. COMFORT AND SAFETY MEASURES IN PLACE. ALL NEEDS ASSESSED AND ATTENDED TO. CALL LIGHT WITHIN REACH. WILL CONTINUE TO MONITOR
--- NOTE | 2018-10-15 19:25 | NUR ---
BLOOD TRANSFUSION INITIATED, VS TAKEN PRETRANSFUSION, PT EDUCATED TO REPORT ADVERSE EFFECTS SUCH SOB, CHILLS ITCHINESS IMMEDIATELY. WITNESSED BY MARIAH CAR. WILL REMAIN IN ROOM FOR 15 MINS.
--- NOTE | 2018-10-15 19:37 | NUR ---
BLOOD TRANSFUSION COMPLETE, NO ADVERSE REACTIONS AT THIS TIME, VS STABLE, NO RESPIRATORY DISTRESS NOTED, DENIES PAIN, DENIES SOB, CALL LIGHT WITHIN REACH.
--- NOTE | 2018-10-15 19:40 | NUR ---
AFTER 15 MINS, NO ADVERSE REACTION NOTED, VS STABLE, PT O2 SAT 86% ON RA, PT PLACED ON 2 LNC WITH O 2 SAT 94%, NO RESPRIATORY DSITRESS NOTED, CALL LIGHT WITHIN REACH. CARE ENDORSED TO MARIAH CAR.
--- NOTE | 2018-10-15 19:58 | NUR ---
IV IN LFA REMOVED WITH CATHETER INTACT, GAUZE AND TAPE PLACED ON SITE, ELEVATED DUE TO SWELLING.
--- NOTE | 2018-10-15 23:10 | NUR ---
BLOOD TRANSFUSION DONE, 300 ML OF PRBC INFUSED. PT DENIES ANY S&S OF TRANSFUSION REACTION, TOLERATED WELL. VITAL SIGNS STABLE AND INPUTTED. NO ACUTE DISTRESS OBSERVED. CALL LIGHT WITHIN REACH. WILL CONTINUE TO MONITOR
--- NOTE | 2018-10-16 00:30 | NUR ---
PT LAYING IN BED, NO ACUTE DISTRESS OBSERVED. BREATHING EVEN AND UNLABORED. CALL LIGHT WITHIN REACH. WILL CONTINUE TO MONITOR
--- NOTE | 2018-10-16 06:06 | NUR ---
NO SIGNIFICANT CHANGES TO REPORT. PT COMPLIED WITH NURSING CARE THROUGHOUT THE SHIFT WITH NO ACUTE EVENTS OVERNIGHT. NO ACUTE DISTRESS OBSERVED AT THIS TIME. PT LAYING IN BED, BREATHING EVEN AND UNLABORED, AROUSABLE TO VERBAL STIMULI. COMFORT AND SAFETY MEASURES MAINTAINED. ALL NEEDS ASSESSED AND ATTENDED TO. CALL LIGHT WITHIN REACH. WILL CONTINUE TO MONITOR AND ENDORSE CARE TO DAY SHIFT NURSE
[2018-10-16 06:46] VITALS: BP 111/63
--- NOTE | 2018-10-16 07:46 | NUR ---
A+OX4, NO RESPIRATORY DSITRESS NOTED, MEDSURG, PULSES MODERATE AND EQUAL BISHOP, +2 EDEMA BLE, 2L NC, LUNG SOUNDS CTA, BOWEL SOUNDS ACTIVE, GENERALIZED WEAKNESS, WALKER @ BEDSIDE, GENERALIZED JAUNDICE, SCLERAL JAUNDICE, IV IN RFA SALINE LOCKED, SITE WNL.
[2018-10-16 07:52] LABS: CALCIUM 8.4 mg/dL (8.5-10.1); CARBON DIOXIDE 29.3 mmol/L (21-32); CHLORIDE SERUM 102 mmol/L (98-107); CREATININE SERUM 0.5 mg/dL (0.6-1.0); GFR1 > 60 mL/min; GLUCOSE SERUM 286 mg/dL (74-106); SODIUM SERUM 136 mmol/L (136-145)
[2018-10-16 08:50] LABS: RED CELL DISTRIBUTION WIDTH 27.2 % (11.5-14.5)
[2018-10-16 08:55] LABS: PLATELET COUNT 48 x10^3mcL (130-400)
--- NOTE | 2018-10-16 09:20 | NUR ---
DR CASTILLO NOTIFIED OF HGB 8.1 AND HCT 12.
--- NOTE | 2018-10-16 09:35 | NUR ---
PT RESTING IN BED, NO RESPIRATORY DISTRESS NOTED, DENIES PAIN, CALL LIGHT WITHIN REACH.
[2018-10-16 09:39] VITALS: BP 110/55
[2018-10-16 11:07] LABS: ATYPICAL LYMPH 0 %; BAND NEUTROPHIL 2 % (0-10); SEGMENTED NEUTROPHILS 20 % (37-75)
[2018-10-16 11:08] LABS: BASOPHIL 0 % (0-2); BLAST 0 % (0); METAMYELOCTE 0 % (0-2); MONOCYTE 0 % (0-7); MYELOCYTE 0 % (0-2); PLATELET MORPHOLOGY PLATELETS DECREASED; PROMYELOCYTE 0 % (0-0); rbc morphology (normal/abnorm) ABNORMAL (NORMAL)
--- NOTE | 2018-10-16 12:17 | NUR ---
PT RESTING IN BED, NO RESPIRATORY DISTRESS NOTED, DENIES PAIN, CALL LIGHT WITHIN REACH.
--- NOTE | 2018-10-16 16:41 | NUR ---
PT RESTING IN BED, NO RESPIRSTORY DISTRESS NOTED, DENIES PAIN, CALL LIGHT WITHIN REACH.
[2018-10-16 17:04] VITALS: BP 109/57
--- NOTE | 2018-10-16 19:25 | NUR ---
RECEIVED PT LAYING IN BED, NO ACUTE DISTRESS OBSERVED. DENIES PAIN OR DISCOMFORT. IV TO RFA IN PLACE, DRY, PATENT, INTACT, S/L, NO PAIN, REDNESS, OR SWELLING WHEN FLUSHED WITH NS. AA/OX4, ABLE TO MAKE NEEDS KNOWN, SPEECH CLEAR AND APPROPRIATE. MED-SURG, NO TELE, NO CP. PULSES PRESENT AND EQUAL, +2 EDEMA TO BLE. BREATHING ON 2L NC, EVEN AND UNLABORED, DENIES SOB OR DYSPNEA, LUNGS CTA, O2 SAT 94% ABD ROUND AND SOFT WITH ACTIVE BOWEL SOUNDS, DENIES N/V/D. FREELY VOIDS URINE. GENERALIZED WEAKNESS, AMBULATORY WITH WALKER, WALKER AT BEDSIDE AND WITHIN REACH, ABLE TO TURN AND REPOSITION SELF IN BED. GENERALIZED AND SCLERAL JAUNDICE NOTED. SCATTERED ECCHYMOSIS TO BUE, HOSPITAL PHARMACY TECHNICIAN. COMFORT AND SAFETY MEASURES IN PLACE. ALL NEEDS ASSESSED AND ATTENDED TO. CALL LIGHT WITHIN REACH. WILL CONTINUE TO MONITOR
--- NOTE | 2018-10-16 19:38 | NUR ---
ENDORSED CARE TO MARIAH CAR.
[2018-10-16 20:40] VITALS: BP 113/59
--- NOTE | 2018-10-17 00:30 | NUR ---
PT LAYING IN BED, BREATHING EVEN AND UNLABORED, NO ACUTE DISTRESS OBSERVED. AROUSABLE TO VERBAL STIMULI. CALL LIGHT WITHIN REACH. WILL CONTINUE TO MONITOR
[2018-10-17 06:07] VITALS: BP 102/49
[2018-10-17 06:49] LABS: CREATININE SERUM 0.7 mg/dL (0.6-1.0); GFR1 > 60 mL/min
[2018-10-17 07:27] LABS: CALCIUM 8.6 mg/dL (8.5-10.1); CARBON DIOXIDE 27.2 mmol/L (21-32); CHLORIDE SERUM 103 mmol/L (98-107); GLUCOSE SERUM 330 mg/dL (74-106); POTASSIUM SERUM 5.1 mmol/L (3.5-5.1); SODIUM SERUM 135 mmol/L (136-145)
--- NOTE | 2018-10-17 07:30 | NUR ---
RECEIVED PT FROM TRAILER PARK MANAGER. ASSESSED AND DOCUMENTED. DENIES PAIN THIS TIME. SAFTEY PRECAUTIONS ARE IN PLACE. WILL MONITOR.
[2018-10-17 08:28] LABS: PLATELET COUNT 56 x10^3mcL (130-400); RED CELL DISTRIBUTION WIDTH 27.7 % (11.5-14.5)
[2018-10-17 08:45] LABS: BAND NEUTROPHIL 2 % (0-10); BASOPHIL 1 % (0-2); MONOCYTE 3 % (0-7); SEGMENTED NEUTROPHILS 86 % (37-75)
[2018-10-17 08:46] LABS: PLATELET MORPHOLOGY PLATELETS DECREASED
[2018-10-17 08:47] LABS: rbc morphology (normal/abnorm) ABNORMAL (NORMAL)
--- NOTE | 2018-10-17 09:00 | NUR ---
AWARE ABOUT H/H=7.2/ AND PLT=56. HE SAID HE IS NOT PLANNING TO GIVE BLOOD TODAY AND HAVE STEROID WORK. WILL RECHECK THE H/H TOMORROW. PT IS STABLE. NO ACTIVE BLEEDING.
[2018-10-17 10:00] VITALS: BP 105/47
--- NOTE | 2018-10-17 13:37 | NUR ---
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 Her Hg in the ED was 4.7. She reports the last time she was transfused was 2 months ago and since then she has had no melena, hematochezia, hemoptesis or hematemesis, and no trauma. She has been having generalized fatigue and weakness for the past 6 months. RDN Visit (10/17): pt was very interactive and said that she weight 287# about 90 months ago before her 's demise. She was depressed after that her PO reduced significantly. She weighed 180# about 2 months ago. Pt requested to drink Ensure Enlive as that makes her full at night. Pt shared about her children being very supportive. I tried to emphasize importance of healthy lifestyle in disease prevention/treatment. Pt verbalized understanding and did not have any questions at this time. Problem with: N/V/D/C: no Problems with: Chewing/Swallowing: no Current appetite: good Recent wt change: 9# in 2 months, 116# in 9 months %wt change: 5% in 2 months Vitamin/Supplement use: Centrum (MVI) Special diet at home: Regular Physical activity: none d/t pt being depressed previously but is willing to do it now Nutrition education given: Importance of nutrition, physical activity and healthy lifestyle was emphasized. Food-drug interactions: none Education given: no Estimated Nutritional Needs Based on actual body weight 78 kg Energy: 9858-6267 kcal/d (25-30 kcal/day)- maintenance Protein: 78-94 g/d (1.0-1.2 g/kg)- replenish lost LBM Fluid: 7396-9870 ml/d (1 ml/kcal) or per doctor Nutrition Diagnosis 1. Unintentional weight loss due to poor PO/depression in the past as evidenced by Self-reported weight loss of 9# in 2 months and 116# in 9 months. Intervention 1. Recommend Ensure Enlive BID 2. Recommend continuing regular diet as tolerated. Monitor/Evaluate Goal: PO intake at least 75% of estimated needs Monitor: PO intake, Labs, GI function F/U in 7 days as low risk 6/5
--- NOTE | 2018-10-17 13:37 | NUR ---
1. Recommend Ensure Enlive BID 2. Recommend continuing regular diet as tolerated.
[2018-10-17 15:32] LABS: BASOPHIL % 0.1 % (0-2)
[2018-10-17 16:46] LABS: PLATELET COUNT 88 x10^3mcL (130-400)
--- NOTE | 2018-10-17 17:00 | NUR ---
H/H=7.8/20. H/H WAS 7.2/13 AND AWARE ABOUT THAT. PT IS STBLE.
[2018-10-17 17:02] LABS: rbc morphology (normal/abnorm) ABNORMAL (NORMAL)
[2018-10-17 17:58] VITALS: BP 105/53
--- NOTE | 2018-10-17 19:10 | NUR ---
PT RESTING IN BED COMFORTABLY. STABLE. DENIES ANY PAIN.
--- NOTE | 2018-10-17 19:10 | NUR ---
GAVE REPORT TO CHECK GRADER NURSE.
[2018-10-17 20:28] VITALS: BP 109/55
--- NOTE | 2018-10-17 23:27 | NUR ---
Awake and verbally responsive. No respiratory distress noted on 02 2lpm via n/c. Denies pain. Denies n/v. Will cont.to monitor. Call light within reach.
--- NOTE | 2018-10-18 04:09 | NUR ---
Afebrile. No significant change in condition noted. Denies pain. Denies dizziness. In no apparent distres.
[2018-10-18 05:29] VITALS: BP 102/48
[2018-10-18 06:37] LABS: ALKALINE PHOSPHATASE 143 U/L (46-116); ALT/SGPT 51 U/L (14-59); AST/SGOT 56 U/L (15-37); BILIRUBIN DIRECT 1.69 mg/dL (0.0-0.2); BILIRUBIN TOTAL 2.6 mg/dL (0.20-1.00); CALCIUM 8.9 mg/dL (8.5-10.1); CARBON DIOXIDE 32.3 mmol/L (21-32); CHLORIDE SERUM 102 mmol/L (98-107); CREATININE SERUM 0.7 mg/dL (0.6-1.0); GFR1 > 60 mL/min; GLUCOSE SERUM 265 mg/dL (74-106); POTASSIUM SERUM 4.7 mmol/L (3.5-5.1); SODIUM SERUM 137 mmol/L (136-145)
[2018-10-18 06:46] LABS: ALBUMIN 2.2 g/dL (3.4-5.0); TOTAL PROTEIN, SERUM 8.9 g/dL (6.4-8.2)
--- NOTE | 2018-10-18 07:25 | NUR ---
RECEIVED PT IN BED. ASSESSED AND DOCUMENTED. DENIES PAIN THIS TIME. STABLE. SAFTEY PRECAUTIONS ARE IN PLACE. WILL MONITOR.
[2018-10-18 09:26] VITALS: BP 115/57
[2018-10-18 13:46] LABS: RED BLOOD CELLS 1.21 M/mm3 (4.10-5.10)
[2018-10-18 14:01] LABS: BASOPHIL % 0 % (0-2); RED CELL DISTRIBUTION WIDTH 28.2 % (11.5-14.5)
--- NOTE | 2018-10-18 14:35 | NUR ---
INFORMED ABOUT H/H=6.5/16, RBC=1.21 AND RETIC=8.8. RECEIVED ORDER FOR PRBC AND ORDERED. CHARGE NURSE AWARE. PT IS STABLE.
[2018-10-18 15:21] LABS: rbc morphology (normal/abnorm) ABNORMAL (NORMAL)
[2018-10-18 17:10] VITALS: BP 120/83
--- NOTE | 2018-10-18 17:10 | NUR ---
DR CASTILLO NOTIFIED THAT PER DIETARY SUPERVISOR NOTE JULIAN PHYSICIAN DOES NOT ACCEPT PATIENT HIGHER LEVEL OF CARE TRANSFER AND HE WANTS PATIENT TO F/U WITH HIM OUTPATIENT. DR LUNA SAID THAT HE WILL DISCUSS IT WITH DR TURNER. ATTENDING NURSE ERIC MADE AWARE.
--- NOTE | 2018-10-18 19:15 | NUR ---
PT RESTING IN BED COMFORTABLY. DENIES PAIN THIS TIME. STABLE. GAVE REPORT TO DRY KILN WORKER NURSE.
--- NOTE | 2018-10-18 19:20 | NUR ---
RECEIVED PT RESTING IN BED, NO ACUTE DISTRESS NOTED. AOX4, DENIES TURNER/DIZZINESS. MEDSURG PT, DENIES CP. 2+ PITTING EDEMA BLE, PT ON LASIX. RESP EVEN AND UNLABORED ON 2LNC. PT HAS INTERMITTENT BLOODY NOSES/DRY NOSE D/T NC, WILL AUPPLY PT WITH HUMIDIFIED O2 FOR COMFORT. PT HAS FINE CRACKLES UPPER LOBES, DIM BILAT BASES. DRY COUGH NOTED. PT DENIES THE NEED FOR COUGH MEDS. AND SOFT, ROUND, DENEIS PAIN. PT VOIDS FREELY W/O DYSURIA. GENERALIZED WEAKNESS, PT USES FWW FOR AMB. GENERALIZED WEAKNESS. PT WITH SCATTERED [place] TO LUE, LARGE ECCHYMOSIS TO RUE. PT DENIES PAIN AT THIS TIME. IV SITE SALINE LOCKED TO , NO REDNESS, SWELLING OR PAIN NOTED. ALL COMFORT AND SAFETY MEASURES PROVIDED FOR, CALL LIGHT WITHIN REACH, BED IN LOWEST POSITION, WILL CONTINUE TO MONITOR.
[2018-10-18 20:42] VITALS: BP 108/65
--- NOTE | 2018-10-19 01:40 | NUR ---
RECEIVED A CALL FROM LAB, PT BLOOD READY. WILL PREMEDICATE PT AND OBTAIN VS. PT CALM AND COOPERATIVE W/ CARE AT THIS TIME. CALL LIGHT WITHIN REACH, BED IN LOWEST POSITION, WILL CONTINUE TO [facility].
--- NOTE | 2018-10-19 02:00 | NUR ---
PHONED [facility] IN REGARDS TO ORDERS FOR BLOOD TRANSFUSION PROTOCOL MEDICATIONS (BENADRYL, TYLENOL, LASIX) FOR BLOOD TRANSFUSION. WILL WAIT FOR CALL BACK.
--- NOTE | 2018-10-19 04:50 | NUR ---
1 UNIT OF PRBC'S OBTAINED FROM BLOOD BANK, TYPE O (+). MURIEL CAR AT BEDSIDE TO WITNESS AND VERIFY PRIOR TO ADMINISTRATION. PRETRANSFUSION VITALS: 98.3 F, HR 88, 112/59 (76), RR 18, 94% ON 2L HUMIDIFIED O2. PT DENIES PAIN AT THIS TIME, WILL BEGIN INFUSION PER ORDER.
--- NOTE | 2018-10-19 05:15 | NUR ---
PT RESTED IN INTERVALS DURING SHIFT, NO ACUTE CHANGES OCCURRING OVERNIGHT. PT CURRENTLY RECEIVING 1 UNIT OF PRBC'S, PT ORDERED TO RECEIVE 2 UNITS IN TOTAL FOR AN H/H OF 6.5/16, PT PASTED THE 15 MINS POINT OF TRANSFUSION, PT REMAINS AFEBRILE, DENIES SOB/CP. PT IV SITE PATENT, NO REDNESS, SWELLING OR PAIN NOTED. ALL COMFORT AND SAFETY MEASURES PROVIDED FOR, CALL LIGHT WITHIN REACH, BED IN LOWEST POSITION, WILL CONTINUE TO MONITOR.
--- NOTE | 2018-10-19 07:10 | NUR ---
RECEIVED PT FROM DIRECTOR OF WOMEN'S SERVICES RN. A/OX4. DENIES CHEST PAIN/PRESSURE. RESPIRATIONS EQUAL AND UNLABORED ON RA. PT DENIES SOB AT THIS TIME. IV TO LFA PATENT AND INFUSING. BLOOD TRANSFUSION COMPLETE. VSS AT THIS TIME. PT DENIES ANY PAIN. WILL CONTINUE TO MONITOR. CALL LIGHT IN REACH. BED IN LOWEST POSITION.
--- NOTE | 2018-10-19 07:36 | NUR ---
ENDORSED ALL CARE TO DAYSHIFT NURSE, NO ACUTE DISTRESS NOTED. PT 1ST BLOOD TRANSFUSION FINISHED. POST TRANSFUSION VITALS OBTAINED. NO REACTION NOTED. ALL COMFORT AND SAFETY MEASURES PROVIDED FOR, CALL LIGHT WITHIN REACH, BED IN LOWEST POSITION. ALL QUESTIONS AND CONCERNS ADDRESSED.
[2018-10-19 08:18] LABS: CALCIUM 9.2 mg/dL (8.5-10.1); CARBON DIOXIDE 33.8 mmol/L (21-32); CHLORIDE SERUM 102 mmol/L (98-107); CREATININE SERUM 0.7 mg/dL (0.6-1.0); GFR1 > 60 mL/min; GLUCOSE SERUM 270 mg/dL (74-106); POTASSIUM SERUM 4.5 mmol/L (3.5-5.1); SODIUM SERUM 138 mmol/L (136-145)
--- NOTE | 2018-10-19 09:35 | NUR ---
PT SITTING UP IN BED. NO ACUTE RESP DISTRESS NOTED ON 1L NC. PT DENIES SOB AT THIS TIME. PT STATES SHE FEELS SOB AFTER WALKING TO BATHROOM. IV SALINE LOCKED TO LFA. NO REDNESS OR SWELLING NOTED. PT DENIES ANY PAIN AT THIS TIME. GIVEN PO MEDS. TOLERATED WELL. WILL CONTINUE TO MONITOR. CALL LIGHT IN REACH. BED IN LOWEST POSITION.
[2018-10-19 09:43] VITALS: BP 114/60
--- NOTE | 2018-10-19 11:32 | NUR ---
DR. DAVIES AT BEDSIDE. DR. DAVIES ORDERED LASIX 20 MG IVP ONCE. ORDERED VERIFIED. PER DR. DAVIES STATES OKAY TO GIVE ANOTHER UNIT OF PRBCS ORDERED. PT ASKING FOR BREATHING TREATMENT. WILL NOTIFY RT.
--- NOTE | 2018-10-19 12:40 | NUR ---
PT SITTING UP IN BED. PT HAS DRY NONPRODUCTIVE COUGH. PT STATES SHE FEELS SOB. RESPIRATORY THERAPIST JEANNINE AT BEDSIDE PROVIDING BREATHING TREATMENT. PT TEMPERATURE CHECKED WAS 101.8. MEDICATED PER EMAR. GIVEN PO MEDS. TOLERATED WELL. IV FLUSHED WELL TO LFA. NO REDNESS OR SWELLING NOTED. PT C/O CHILLS. ENCOURAGED COOLING MEASURES TO HELP WITH TEMPERATURE. WILL CONTINUE TO MONITOR. CALL LIGHT IN REACH. BED IN LOWEST POSITION.
--- NOTE | 2018-10-19 13:39 | NUR ---
SPOKE WITH STEWARD/STEWARDESS CHIEF CARGO VESSEL JORGITO. CBC CANNOT BE RUNNED DUE TO COLD ANTIBODIES. SAMPLE WILL BE REDRAWN AND SENT TO LAB [facility] TO BE RAN.
--- NOTE | 2018-10-19 15:12 | NUR ---
PT RUNNING TEMPERATURE OF 101.3. DR. PIERSON NOTIFIED. PER DR. PIERSON ORDERED CHEST X-RAY NOW, UA NOW, BLOOD CULTURES TIMES 2, VANCOMYCIN 1 GM PER PHARMACY PROTOCOL, ZOSYN 3.375 PER PHARMACY PROTOCOL, TYLENOL 650 MG Q4HR PRN TEMP >100.4/HEADACHE. ORDERS CONFIRMED TORB. PER DR. PIERSON HOLD OFF ON BLOOD TRANSFUSION UNTIL PT TEMPERATURE IS CONTROLLED. BLOOD BANK NOTIFIED.
--- NOTE | 2018-10-19 15:21 | NUR ---
LAB AT BEDSIDE DRAWING BLOOD CULTURES TIMES 2
[2018-10-19 16:48] LABS: PLATELET COUNT 21 x10^3mcL (130-400)
[2018-10-19 16:50] VITALS: BP 99/46
--- NOTE | 2018-10-19 17:31 | NUR ---
PT SITTING UP IN BED. NO ACUTE RESP DISTRESS NOTED ON 1L NC. PT DENIES SOB AT THIS TIME. IV FLUSHED WELL. IV ANTIBIOTICS INFUSING ORDERED. GIVEN PO MEDS. TOLERATED WELL. BLOOD SUGAR CHECKED WAS 207. GIVEN 6 UNITS OF REGULAR INSULIN. WILL CONTINUE TO MONITOR. CALL LIGHT IN REACH, BED IN LOWEST POSITION.
--- NOTE | 2018-10-19 18:28 | NUR ---
PT SITTING UP IN BED. NO ACUTE RESP DISTRESS NOTED ON 4L HUMIDIFIED O2. PT DENIES ANY SOB. PT STILL HAS COUGH ON AND OFF. PT DENIES ANY PAIN AT THIS TIME. IV PATENT AND INFUSING TO LFA. NO REDNESS OR SWELLING NOTED. TEMPERATURE CHECKED TEMPORAL 99.2. PT DENIES FEVER AT THIS TIME. WILL ENDORSE TO NIGHT CRISPIN CAR. CALL LIGHT IN REACH. BED IN LOWEST POSITION.
[2018-10-19 18:29] VITALS: BP 99/46
[2018-10-19 18:50] LABS: UA SPECIFIC GRAVITY <=1.005 (1.005-1.035); microscopic required? YES; urine erythrocyte TRACE (NEGATIVE)
--- NOTE | 2018-10-19 18:50 | NUR ---
REPORT GIVEN TO BALDEV CAR [place] [facility] [place]
--- NOTE | 2018-10-19 20:28 | NUR ---
PT DISCHARGE TO [facility] [place] VIA [facility].ASSISTED BY 2 ATTENDANTS [facility].ALL BELONGINGS SENT WITH PT.DISCHARGE PAPERS GIVEN.IN NO DISTRESS.CONFIRMED WITH [facility] SPOKE WITH FREDI ABOUT THE TRANSFER.PT IN NO DISTRESS.
== END 2018-10-19 20:30 | disposition short-term general hospital (02) | DRG 660 ==
LOC: ED 10:46 → MU 13:21 → DU 13:21 → MU 13:58
PROVIDERS: Emergency Medicine; Internal Medicine; Internal Medicine Pulmonary Disease; ADMIT Internal Medicine Pulmonary Disease
PROC: 30233N1 Transfusion of Nonautologous Red Blood Cells into Peripheral Vein, Percutaneous Approach (ICD-10-PCS; principal; 2018-10-15)
DX: D59.1 Other autoimmune hemolytic anemias (principal); I50.32 Chronic diastolic (congestive) heart failure; E87.70 Fluid overload, unspecified; D53.1 Other megaloblastic anemias, not elsewhere classified; Z98.891 History of uterine scar from previous surgery; E53.8 Deficiency of other specified B group vitamins
CPT/HCPCS: 82962; 83880; 94150; J0610; J1815; J1940; J2543; J2920; J3370; J3420; J7030; J7040; J7050; J7620; P9016; Q0092